=== PATIENT | female | born 1985 | race Caucasian/White ===

== ENCOUNTER → 2021-10-20 13:55 | Outpatient (BNVA) | payer OTHER, SELFPAY | PROVIDERS: PCP Family Medicine Adult Medicine; Visit Provider Obstetrics & Gynecology | DX: N97.9 Female infertility, unspecified (principal) | CPT/HCPCS: 83036; 83525; 84443 ==

== ENCOUNTER → 2021-10-26 13:29 | Outpatient (BNVA) | payer OTHER, SELFPAY | PROVIDERS: PCP Family Medicine Adult Medicine; Visit Provider Obstetrics & Gynecology | DX: D21.9 Benign neoplasm of connective and other soft tissue, unspecified (principal); N85.2 Hypertrophy of uterus; N85.8 Other specified noninflammatory disorders of uterus; N83.8 Other noninflammatory disorders of ovary, fallopian tube and broad ligament | CPT/HCPCS: 76830 ==

== ENCOUNTER 2021-11-23 11:29 | Day surgery (SDC) | payer OTHER, SELFPAY ==
[2021-11-22 15:21] VITALS: BMI 31.3
[2021-11-23] VITALS (9 sets, daily range): BP systolic 83–118; BP diastolic 59–81; PULSE 78–106; RESP 12–18; TEMP 36.4–36.8; O2SAT 90–98
[2021-11-23 11:54] LABS: OR HCG Qualitative Urine Negative (Negative)
[2021-11-23] MEDS: sodium chloride 0.9% 1,000 ML 30 ML IV (12:12)
[2021-11-23] MEDS: ketorolac 30 mg/mL INJ IVP (12:16)
[2021-11-23 12:21] LABS: Basophils # 0.1 10^3/uL (0.0-0.1); Basophils % 0.7 %; Eosinophils # 0.1 10^3/uL (0.0-0.8); Eosinophils % 1.1 %; Hematocrit 38.7 % (37.0-47.0); Lymphocytes # 3.1 10^3/uL (0.8-4.8); Lymphocytes % 36.9 %; Mean Corpuscular HGB Conc 33.6 g/dL (30.0-36.0); Mean Corpuscular Volume 92.4 fl (81-99); Mean Platelet Volume 9.8 fL (7.4-10.4); Monocytes # 0.6 10^3/uL (0.2-0.9); Monocytes % 7.4 %; Neutrophils # 4.54 10^3/uL (1.8-7.7); Neutrophils % 53.5 %; Nucleated Red Blood Cells % 0 %; Platelet Count 326 10^3/cmm (130-400); Red Blood Count 4.19 10^6/uL (4.1-5.3); Red Cell Distribution Width 13.8 % (12.1-15.1); White Blood Count 8.5 10^3/uL (4.0-10.0)
--- NOTE | 2021-11-23 13:33 | W.PM.OPSUD ---
Surgery/Procedure H&P Update DATE OF PROCEDURE: November 23, 2021 DATE H&P PERFORMED: 11/17/21 H&P UPDATE INFORMATION: I have reviewed H&P completed within last 30 days, I have examined patient prior to procedure and No changes to prior documentation PREOP DIAGNOSIS: uterine fibroids, thickened endometrium PLANNED PROCEDURE: Operation Date: 11/23/21 12:50 Proposed Procedures p Hysteroscopy myosure 14557, 09897, 18375,D25.9,R93.89(Not Applicable) - Lisa Hoyos MD s Dilation And Curettage (D&C)(Not Applicable) - Lisa Hoyos MD Related Problem List Diagnoses (1) Thickened endometrium: (2) Uterine leiomyoma:
--- NOTE | 2021-11-23 14:01 | ANES.PREANE2 ---
Pre-Anesthetic Assessment Height/Weight: Height 1.7 m Weight 90.718 kg Temp Pulse Resp BP Pulse Ox 98.3 F 78 15 113/71 96 11/23/21 11:57 11/23/21 11:57 11/23/21 11:57 11/23/21 11:57 11/23/21 11:57 Preop Diagnosis: uterine fibroids, thickened endometrium Operation Date: 11/23/21 12:50 Proposed Procedures p Hysteroscopy myosure 34665, 57371, 27959,D25.9,R93.89(Not Applicable) - Lisa Hoyos MD s Dilation And Curettage (D&C)(Not Applicable) - Lisa Hoyos MD Familial anesthetic complications: None Was Beta Chencho taken within 24 hours: N/A Was Clonidine taken within 24 hours: N/A Last intake: Intake Last Liquid Date 11/22/21 Last Liquid Time 00:00 Last Solid Date 11/22/21 Last Solid Time 23:30 Social No alcohol and No tobacco Exam alert, oriented x 3, clear to auscultation bilaterally and regular rate & rhythm Airway Submandibular: within normal limits Cervical ROM: within normal limits Mallampati: Class II Dentition: full History/ROS No significant history except as noted Anesthetic Plan ASA status: 1 Anesthesia: General Medications/Allergies Home Medications Medication Instructions Recorded Confirmed Last Taken Type acetaminophen 500 mg tablet 500 mg PO Q6H PRN 10/05/21 11/22/21 Unknown History (Tylenol Extra Strength) cholecalciferol (vitamin D3) 1 tab PO DAILY 10/05/21 11/23/21 11/22/21 History multivitamin 1 tab PO DAILY 10/05/21 11/23/21 11/22/21 History Allergies Allergy/AdvReac Type Severity Reaction Status Date / Time No Known Allergies Allergy Verified 11/22/21 15:20 Current Medications Generic Name Dose Route Start Last Admin Trade Name Freq PRN Reason Stop Dose Admin Sodium Chloride 1,000 mls @ 30 mls/hr 11/23/21 11:45 11/23/21 12:12 Sodium Chloride 0.9% IV 11/24/21 11:44 30 mls/hr .Q24H MICHAEL Administration PFSH Anesthesia Medical History Acute anxiety Depression Encounter for wellness examination No pertinent past medical history neghx, htn, dm, thyroid, dvt/pe PCP: Dr. Avelar Uterine fibroid Surgical History S/P LASIK surgery of both eyes Family History Sister Thyroid disease hypothyroidsm Mother CAD (coronary artery disease) Hypertension CHF (congestive heart failure) Mitral valve disorder Cardiomyopathy Hyperlipidemia Heart disease Grandmother Diabetes maternal Hyperlipidemia maternal Colon cancer paternal Grandfather Hyperlipidemia maternal Denies family history of Cervical cancer Ovarian cancer Prostate cancer Breast cancer Bleeding disorder Uterine cancer Stroke Data Anesthesia : 11/23/21 12:10 Short CBC 11/23/21 Range/Units 12:10 WBC 8.5 (4.0-10.0) 10^3/uL Hgb 13.0 (11.5-15.3) g/dL Hct 38.7 (37.0-47.0) % MCV 92.4 (81-99) fl Plt Count 326 (130-400) 10^3/cmm Neut % (Auto) 53.5 % Neut # (Auto) 4.54 (1.8-7.7) 10^3/uL Cardiac Studies: No Data to Display
--- NOTE | 2021-11-23 15:00 | P.OP_ITS ---
Operative Report Date of procedure: November 23, 2021 Pre-op diagnosis: Preop Diagnosis uterine fibroids, thickened endometrium Post-op diagnosis: same Post-op findings: 10 week sized uterus Procedure done: hysteroscopy, dilation and curettage with myosure Specimens removed/disposition: endometrial curettings to pathology Surgeon: Lisa Hoyos Anesthesia: MAC Estimated blood loss (mL): 100 IV fluids (mL): 700 Urine output (mL): 300 Complications: none Condition: stable Disposition: PACU Procedure: The patient was taken to the operating room where monitored anesthesia was administered and to be adequate. She was prepped and draped in the normal sterile fashion in the dorsal lithotomy position in [facility]. A weighted speculum was placed into the vagina and the anterior lip of the cervix grasped with a single-tooth tenaculum. The uterus was sounded to 10 cm. The cervix was dilated to 18 Yi. The hysteroscope was advanced into the endometrial cavity. There was multiple fibroids visualized. The MyoSure device was activated and the tissue was removed. Pictures were taken pre and post procedure. All instruments were removed. The patient tolerated the procedure well. Sponge lap and needle counts were correct x3. She was taken to the recovery room in stable condition.
--- NOTE | 2021-11-23 15:03 | PM.DCS ---
Discharge Providers Date of Discharge: November 23, 2021 Attending Provider at Discharge: Lisa Hoyos MD Primary Care Provider: Nicola Garcia MD Diagnoses at Discharge Discharge Diagnosis (1) Thickened endometrium: Status: Acute (2) Uterine leiomyoma: Status: Acute Hospital Course Hospital Course The patient was admitted for surgery. She did well postoperatively and was ready for discharge Discharge Data Studies Completed and Pending Pending at discharge Category Date Time Status ES surgery / GI images Routine Exams 11/23/21 12:47 Taken Pathology: Surgical [PTH] Routine Pth 11/23/21 15:02 Ordered Laboratory Results WBC 8.5 10^3/uL (4.0-10.0) 11/23/21 12:10 RBC 4.19 10^6/uL (4.1-5.3) 11/23/21 12:10 Hgb 13.0 g/dL (11.5-15.3) 11/23/21 12:10 Hct 38.7 % (37.0-47.0) 11/23/21 12:10 MCV 92.4 fl (81-99) 11/23/21 12:10 MCH 31.0 pg (28.0-34.0) 11/23/21 12:10 MCHC 33.6 g/dL (30.0-36.0) 11/23/21 12:10 RDW 13.8 % (12.1-15.1) 11/23/21 12:10 Plt Count 326 10^3/cmm (130-400) 11/23/21 12:10 MPV 9.8 fL (7.4-10.4) 11/23/21 12:10 Neut % (Auto) 53.5 % 11/23/21 12:10 Lymph % (Auto) 36.9 % 11/23/21 12:10 [place] % (Auto) 7.4 % 11/23/21 12:10 Eos % (Auto) 1.1 % 11/23/21 12:10 Baso % (Auto) 0.7 % 11/23/21 12:10 Neut # (Auto) 4.54 10^3/uL (1.8-7.7) 11/23/21 12:10 Lymph # (Auto) 3.1 10^3/uL (0.8-4.8) 11/23/21 12:10 [place] # (Auto) 0.6 10^3/uL (0.2-0.9) 11/23/21 12:10 Eos # (Auto) 0.1 10^3/uL (0.0-0.8) 11/23/21 12:10 Baso # (Auto) 0.1 10^3/uL (0.0-0.1) 11/23/21 12:10 Nucleated RBC % (auto) 0 % 11/23/21 12:10 Nucleated RBCs # 0.0 /100WBC 11/23/21 12:10 Urine HCG, Qual Negative (Negative) 11/23/21 11:52 Vitals Last Vital Signs Temp 98.3 F 11/23/21 11:57 Pulse 78 11/23/21 11:57 Resp 15 11/23/21 11:57 BP 113/71 11/23/21 11:57 Pulse Ox 96 11/23/21 11:57 Discharge Plan Discharge Patient Disposition: Home Condition: Stable Prescriptions: Continued cholecalciferol (vitamin D3) 1 tab PO DAILY 0RF multivitamin Tablet 1 tab PO DAILY 0RF acetaminophen [Tylenol Extra Strength] 500 mg tablet 500 mg PO Q6H PRN (Reason: Pain) 0RF Discharge Orders: Discharge Order (Routine); Ordered 11/23/21 Ordered By: Lisa Hoyos Discharge Attestations Time Spent in Discharge Care*: less than 30 min Quality Metrics Clinical Quality Measures [ No reported AMI, CVA or VTE this stay] Coding Level of Care Code Acute Chg FW DC note Diagnoses Thickened endometrium R93.89 Uterine leiomyoma D25.9
--- NOTE | 2021-11-23 15:21 | ANE.PACU2 ---
Inpatient post-anesthesia follow up: Airway intact: Yes Vital signs: Temperature 97.5 F Pulse Rate 98 Respiratory Rate 18 Blood Pressure 116/72 Pulse Oximetry 96 Oxygen Delivery Me thod Room Air Oxygen Flow Rate 2 Fraction of Inspir ed Oxygen Hydration adequate: Yes Nausea and vomiting: No Pain level: 2 Mental status: Baseline
== END 2021-11-23 16:00 | disposition home or self-care (01) ==
PROVIDERS: PCP Family Medicine Adult Medicine; Visit Provider Obstetrics & Gynecology
PROC: 0UDB8ZZ Extraction of Endometrium, Via Natural or Artificial Opening Endoscopic (ICD-10-PCS; CPT 58558; principal; 2021-11-23 12:40)
PROC: (CPT 58120; 2021-11-23 12:40)
DX: D25.9 Leiomyoma of uterus, unspecified (principal); R93.89 Abnormal findings on diagnostic imaging of other specified body structures
CPT/HCPCS: 58558; 36415; 81025; 84703; 85025; 88305; J1100; J1885; J2250; J2405; J2704; J3010; J7030

== ENCOUNTER 2022-03-30 07:21 | Outpatient (CLI) | payer OTHER, SELFPAY ==
--- NOTE | 2022-03-30 07:57 | FL_ITS ---
WS: [id number] HYSTEROSALPINGOGRAM The cervical opening was cannulated by the pearl hand. Then under fluoroscopic guidance, water-solu ble contrast was injected in a retrograde fashion. CLINICAL INFORMATION: INFERTILITY COMPARISON: Ultrasound October 26, 2021 FINDINGS: Normal rapid filling of the uterus. No evidence of contour abnormality, filling defect, or septum. La te filling of the LEFT fallopian tube with spillage into the peritoneum. No filling of the RIGHT fall opian tube. Suspected fibroids described on the prior ultrasound. No fibroid calcifications visualized. FLUOROSCOPY TIME: 0min 55.0sec minutes. # of spot films: 7. FL/FL hysterosalpingography [id number] IMPRESSION: 1. Normal rapid filling of the uterus with Normal uterine contour. No septum o r filling defects. 2. Late filling of the LEFT fallopian tube with spillage into the peritoneum. 3. No filling or partial filling of the RIGHT fallopian tube
[2022-03-30] MEDS: iohexol 300 mg/mL 50 mL Btl VAGINAL (09:03)
--- NOTE | 2022-03-30 15:49 | PM.OP ---
Operative Report Date of procedure: March 30, 2022 Pre-op diagnosis: Preop Diagnosis uterine fibroids, thickened endometrium Post-op diagnosis: same Post-op findings: patent left fallopian tube. No spill from right tube Procedure done: hysterosalpingogram Surgeon: Lisa Hoyos Estimated blood loss (mL): 0 Complications: none Findings: normal uterine contour patent left fallopian tube non-patent right fallopian tube Condition: stable Disposition: other (home) Procedure: The patient was placed in the dorsal lithotomy position. The speculum was placed into the vagina and the cervix visualized. It was cleansed with betadine. A single tooth tenaculum was placed onto the anterior lip of the cervix. The uterus was sounded to 8 cm. The canula was placed into the cervix. 12 ml of contrast was injected into the uterus. Fluoroscopy was used to take images. All of the instruments were removed. A final picture was taken. The patient tolerated the procedure well. Counts were correct. She was dismissed home in stable condition.
--- NOTE | 2022-03-30 15:52 | PM.DCS ---
Discharge Providers Date of Discharge: March 30, 2022 Attending Provider at Discharge: Lisa Hoyos MD Primary Care Provider: Nicola Garcia MD Reason for Visit Reason for Visit: N97.9 - Female infertility, unspe 25641 Hospital Course Hospital Course The patient had an HSG. It showed a patent left tube and non-patent right tube. The uterine contour was normal. She was discharged home in stable condition. Discharge Data Studies Completed and Pending Completed Studies During Hospitalization Category Date Time Status [place] hysterosalpingography [id number] Routine Exams 03/30/22 07:57 Completed Radiology Impressions Hysterosalpingogram 03/30/22 07:57 IMPRESSION: 1. Normal rapid filling of the uterus with Normal uterine contour. No septum or filling defects. 2. Late filling of the LEFT fallopian tube with spillage into the peritoneum. 3. No filling or partial filling of the RIGHT fallopian tube Discharge Plan Discharge Patient Disposition: Home Prescriptions: No Action cholecalciferol (vitamin D3) 1 tab PO DAILY multivitamin Tablet 1 tab PO DAILY acetaminophen [Tylenol Extra Strength] 500 mg tablet 500 mg PO Q6H PRN (Reason: Pain) loratadine [Claritin] 10 mg tablet 10 mg PO DAILY fluticasone propionate [Flonase Allergy Relief] 50 mcg/actuation spray,suspension 1 spray intranasal DAILY Rx Instructions: administer into each nostril clomiphene citrate 50 mg tablet 50 mg PO DAILY 5 Days Qty: 5 0RF Rx Instructions: start cycle day #3 for 5 days. Discharge Attestations Time Spent in Discharge Care*: less than 30 min Quality Metrics Clinical Quality Measures [ No reported AMI, CVA or VTE this stay] Coding Level of Care Code Acute Chg FW DC note
== END 2022-03-30 07:22 | disposition home or self-care (01) ==
PROVIDERS: PCP Family Medicine Adult Medicine; Visit Provider Obstetrics & Gynecology
DX: N97.9 Female infertility, unspecified (principal)
CPT/HCPCS: 74740

== ENCOUNTER → 2022-05-12 08:40 | Outpatient (BNVA) | payer OTHER, SELFPAY | PROVIDERS: PCP Family Medicine Adult Medicine; Visit Provider Nurse Practitioner Women's Health | DX: O20.0 Threatened abortion (principal); Z32.00 Encounter for pregnancy test, result unknown; N92.6 Irregular menstruation, unspecified; Z3A.00 Weeks of gestation of pregnancy not specified | CPT/HCPCS: 81025; 84315; 84702; 85025; 86850; 86900 ==

== ENCOUNTER → 2022-06-23 15:00 | Outpatient (BNVA) | payer OTHER, SELFPAY | PROVIDERS: PCP Family Medicine Adult Medicine; Visit Provider Obstetrics & Gynecology | DX: O09.891 Supervision of other high risk pregnancies, first trimester (principal); Z3A.00 Weeks of gestation of pregnancy not specified | CPT/HCPCS: 84443; 86592; 86762; 86803; 87340; 87491; 87591; 87661; 87806 ==

== ENCOUNTER → 2022-07-21 09:00 | Outpatient (BNVA) | payer OTHER, SELFPAY | PROVIDERS: PCP Family Medicine Adult Medicine; Visit Provider Nurse Practitioner Women's Health | DX: O09.90 Supervision of high risk pregnancy, unspecified, unspecified trimester (principal); Z3A.00 Weeks of gestation of pregnancy not specified | CPT/HCPCS: 80307; 84315; 87086 ==

== ENCOUNTER 2022-08-02 13:33 | Emergency (ER) | payer OTHER, SELFPAY ==
[2022-08-02 14:02] VITALS: BP 120/78; PULSE 102; RESP 17; TEMP 36.5; O2SAT 97; BMI 32.8
[2022-08-02 14:17] VITALS: BP 117/85; PULSE 110; RESP 16; O2SAT 98
[2022-08-02 14:34] LABS: Add Urine Microscopic? NO; Charge for UA Resulting for Rev
[2022-08-02 14:42] LABS: Bilirubin Urine Neg (Negative); Blood Urine Neg (Negative); Glucose Urine UA Norm (Normal); Ketones Urine Negative (Negative); Leukocyte Esterase Urine Negative (Negative); Nitrate Urine Negative (Negative); Protein Urine Neg (Negative); Urine Appearance Clear (CLEAR); Urine Color Light yellow (Yellow); Urobilinogen Urine Norm (Negative); pH Urine 7 (5-7)
[2022-08-02 14:43] LABS: Basophils # 0.1 10^3/uL (0.0-0.1); Basophils % 0.3 %; Eosinophils % 0.3 %; Hematocrit 37.1 % (37.0-47.0); Hemoglobin 12.2 g/dL (11.5-15.3); Lymphocytes # 2.7 10^3/uL (0.8-4.8); Lymphocytes % 17.9 %; Mean Corpuscular HGB Conc 32.9 g/dL (30.0-36.0); Mean Corpuscular Volume 91.4 fl (81-99); Mean Platelet Volume 9.9 fL (7.4-10.4); Monocytes # 0.9 10^3/uL (0.2-0.9); Monocytes % 6.2 %; Neutrophils # 11.37 10^3/uL (1.8-7.7); Nucleated Red Blood Cells % 0 %; Platelet Count 296 10^3/cmm (130-400); Red Blood Count 4.06 10^6/uL (4.1-5.3); Red Cell Distribution Width 13.2 % (12.1-15.1); White Blood Count 15.2 10^3/uL (4.0-10.0)
--- NOTE | 2022-08-02 14:46 | ED_ITS ---
HPI - General: Chief complaint: OB/Uterine Contractions Stated complaint: 18wk preg/LLQ pain Time Seen by Provider: 08/02/22 14:13 Source: patient Mode of arrival: ambulatory History of Present Illness: 36-year-old female who is at 18 weeks gestation presents with complaints of abdominal pain and cramping. She denies any dysuria urgency or frequency. Denies any constipation. No vaginal bleeding or discharge. MD Complaint: abdominal pain Onset (ago): hour(s) Pain Consistency: intermittent Location: pelvis Severity: mild Quality: Cramping Relieving factors: none Exacerbating factors: none Vaginal discharge: none Vaginal bleeding: none Date of Last Menstrual Period: 03/26/22 OB History - Previous Pregnancies: no complications care: followed by OB and previous ultrasound confirms IUP Associated symptoms: Deny abdominal pain, dyspareunia, dysuria, headache(s), malaise, nausea, rash, seizures, short of breath, syncope, vaginal bleeding, vaginal discharge, visual changes, vomiting or weakness Related Data: : 1 Review of Systems Const: Denies: fever(s), chills, fatigue or malaise ENMT: Denies: throat pain, ear or mastoid pain, nasal discharge or nasal congestion Card: Denies: chest pain or syncope Resp: Denies: dyspnea, productive cough or non-productive cough GI: Denies: abdominal pain, nausea or vomiting : Denies: dysuria, vaginal discharge or dyspareunia Skin/Breast: Denies: rash or pruritus Neuro: Denies: headache(s) PFSH ED PFSH: Medical History Acute anxiety resolved Depression resolved No pertinent past medical history neghx, htn, dm, thyroid, dvt/pe PCP: Dr. Avelar Uterine fibroid Surgical History S/P LASIK surgery of both eyes Family History Sister Thyroid disease hypothyroidsm Mother CAD (coronary artery disease) Hypertension CHF (congestive heart failure) Mitral valve disorder Cardiomyopathy Hyperlipidemia Heart disease Grandmother Diabetes maternal Hyperlipidemia maternal Colon cancer paternal Grandfather Hyperlipidemia maternal Denies family history of Cervical cancer Ovarian cancer Prostate cancer Breast cancer Bleeding disorder Uterine cancer Stroke Female Reproductive History: Date of last menstrual period: 03/26/22 : 1 Physical Exam Const: COMMON NORMALS: no acute distress GENERAL APPEARANCE: cooperative and comfortable ORIENTATION/CONSCIOUSNESS: Yes awake, Yes oriented to person, Yes oriented to place and Yes oriented to time HENMT: COMMON NORMALS: normocephalic, atraumatic and hearing grossly normal bi laterally HEAD & SCALP: normocephalic and atraumatic Resp: COMMON NORMALS: normal respiratory effort, No retractions, No use of accessory muscles and clear to auscultation bilaterally AUSCULTATION: clear to auscultation bilaterally Cardio: COMMON NORMALS: regular rate, regular rhythm and No murmurs present (Cardio) RATE: regular rate RHYTHM: regular rhythm GI: COMMON NORMALS: Soft to palpation and No hepatosplenomegaly present AUSCULTATION: Yes normoactive bowel sounds PALPATION: Yes Soft to palpation, No Tenderness to palpation present (GI), No Guarding due to palpation present (GI) and Yes No hepatosplenomegaly present : SPECULUM EXAM - VAGINA: No vaginal bleeding OB/EXTERNAL & SPECULUM: No vaginal bleeding OTHER: Uterus palpable 2 to 3 cm below the umbilicus. On palpation the uterus is shifted slightly to the left and is prominent in the left lower quadrant. This is area the patient is referring to when she palpates a lump. No evidence of inguinal hernia. Extremity: COMMON NORMALS: normal to inspection, capillary refill normal, no clubbing, cyanosis or edema, no calf tenderness and no pedal edema Neuro: SENSORIUM/ORIENTATION: Yes oriented to person, Yes oriented to place and Yes oriented to time Skin: COMMON NORMALS: no rashes or lesions noted GENERAL SKIN EXAM: no rashes or lesions noted Course Vital Signs: Vital signs: Vital Signs Temperature 97.7 F 08/02/22 14:02 Pulse Rate 110 H 08/02/22 14:17 Respiratory Rate 16 08/02/22 14:17 Blood Pressure 117/85 08/02/22 14:17 Pulse Oximetry 98 08/02/22 14:17 Oxygen Delivery Me thod 08/02/22 14:17 MDM - OB/Uterine Contractions Medical Decision Making heart tones normal. Patient is feeling better after receiving IV fluids. Discharge home Labs and imaging reviewed with the patient no changes at this time follow-up with your OB as previously planned return if he has further problems. Medical Records I reviewed the patient's medical records. Lab Data I reviewed the patient's lab results. 08/02/22 14:30 08/02/22 14:30 Laboratory Results WBC 15.2 10^3/uL (4.0-10.0) H 08/02/22 14:30 RBC 4.06 10^6/uL (4.1-5.3) L 08/02/22 14:30 Hgb 12.2 g/dL (11.5-15.3) 08/02/22 14:30 Hct 37.1 % (37.0-47.0) 08/02/22 14: MCV 91.4 fl (81-99) 08/02/22 14: MCH 30.0 pg (28.0-34.0) 08/02/22 14: MCHC 32.9 g/dL (30.0-36.0) 08/02/22 14:30 RDW 13.2 % (12.1-15.1) 08/02/22 14:30 Plt Count 296 10^3/cmm (130-400) 08/02/22 14: MPV 9.9 fL (7.4-10.4) 08/02/22 14:30 Neut % (Auto) 75.0 % 08/02/22 14:30 Lymph % (Auto) 17.9 % 08/02/22 14:30 [place] % (Auto) 6.2 % 08/02/22 14:30 Eos % (Auto) 0.3 % 08/02/22 14:30 Baso % (Auto) 0.3 % 08/02/22 14:30 Neut # (Auto) 11.37 10^3/uL (1.8-7.7) H 08/02/22 14:30 Lymph # (Auto) 2.7 10^3/uL (0.8-4.8) 08/02/22 14:30 [place] # (Auto) 0.9 10^3/uL (0.2-0.9) 08/02/22 14:30 Eos # (Auto) 0.0 10^3/uL (0.0-0.8) 08/02/22 14:30 Baso # (Auto) 0.1 10^3/uL (0.0-0.1) 08/02/22 14:30 Nucleated RBC % (auto) 0 % 08/02/22 14:30 Nucleated RBCs # 0.0 /100WBC 08/02/22 14:30 Sodium 134 mmol/L (136-145) L 08/02/22 14:30 Potassium 3.8 mmol/L (3.5-5.1) 08/02/22 14:30 Chloride 99 mmol/L (98-107) 08/02/22 14:30 Carbon Dioxide 23 mmol/L (22-29) 08/02/22 14:30 Anion Gap 15.8 (5-19) 08/02/22 14:30 BUN 6 mg/dL (6-20) 08/02/22 14:30 Creatinine 0.4 mg/dL (0.5-0.9) L 08/02/22 14:30 GFR Calculation 179.6 mL/min (90-130) H 08/02/22 14:30 Glucose 105 mg/dL (65-115) 08/02/22 14:30 Calculated Osmolality 276 mOsm/kg (285-295) L 08/02/22 14:30 Calcium 9.0 mg/dL (8.5-10.5) 08/02/22 14:30 Total Bilirubin 0.3 mg/dL (0.15-1.2) 08/02/22 14:30 AST 9 U/L (0-32) 08/02/22 14:30 ALT 10 U/L (0-33) 08/02/22 14:30 Alkaline Phosphatase 66 U/L (35-105) 08/02/22 14:30 Total Protein 7.0 g/dL (6.6-8.7) 08/02/22 14:30 Albumin 3.7 g/dL (3.5-5.2) 08/02/22 14:30 Globulin 3.3 g/dL (1.3-4.6) 08/02/22 14:30 Urine Color Light yellow (Yellow) 08/02/22 14:20 Urine Appearance Clear (CLEAR) 08/02/22 14:20 Urine pH 7 (5-7) 08/02/22 14:20 Ur Specific [place] 1.010 (1.005-1.030) 08/02/22 14:20 Urine Protein Neg (Negative) 08/02/22 14:20 Urine Glucose (UA) Norm (Normal) 08/02/22 14:20 Urine Ketones Negative (Negative) 08/02/22 14:20 Urine Blood Neg (Negative) 08/02/22 14:20 Urine Nitrate Negative (Negative) 08/02/22 14:20 Urine Bilirubin Neg (Negative) 08/02/22 14:20 Urine Urobilinogen Norm mg/dL (Negative) 08/02/22 14:20 Ur Leukocyte Esterase Negative (Negative) 08/02/22 14:20 Discharge Plan Discharge Patient Disposition: Home Clinical Impression: Pelvic cramping Condition: Stable Prescriptions: No Action cholecalciferol (vitamin D3) 1 tab PO DAILY multivitamin Tablet 1 tab PO DAILY acetaminophen [Tylenol Extra Strength] 500 mg tablet 500 mg PO Q6H PRN (Reason: Pain) prenat.vits,yan,[id number]-hgny-bjypg Tablet 1 tab PO DAILY loratadine [Claritin] 10 mg tablet 10 mg PO DAILY Discharge Orders: Discharge ED (Routine); Ordered 08/02/22 Ordered By: Rudy Gallardo Referrals: Lisa Hoyos MD [Primary Care Provider] - Discharge Diet: Usual diet Discharge Activity: Resume usual activity Patient Instructions: Opioid Safety, Pain Management Activity Restrictions/Additional Instructions: You are seen today for pelvic cramping. heart tones were normal your lab work was normal and urine was normal follow-up with your primary OB as previously scheduled. Coding Level of Care Code ED Chart Reader for [facility]
[2022-08-02] MEDS: sodium chloride 0.9% 1,000 ML 999 ML IV (14:51)
[2022-08-02 15:03] LABS: Alanine Aminotransferase 10 U/L (0-33); Albumin Level 3.7 g/dL (3.5-5.2); Alkaline Phosphatase 66 U/L (35-105); Anion Gap 15.8 (5-19); Aspartate Amino Transferase 9 U/L (0-32); Blood Urea Nitrogen 6 mg/dL (6-20); Carbon Dioxide 23 mmol/L (22-29); Chloride 99 mmol/L (98-107); Globulin 3.3 g/dL (1.3-4.6); Glomerular Filtration Rate 179.6 mL/min (90-130); Glucose 105 mg/dL (65-115); Osmolality Calculated 276 mOsm/kg (285-295); Potassium 3.8 mmol/L (3.5-5.1); Sodium 134 mmol/L (136-145); Total Bilirubin 0.3 mg/dL (0.15-1.2)
== END 2022-08-02 17:08 | disposition home or self-care (01) ==
PROVIDERS: Emergency Provider Family Medicine; PCP Obstetrics & Gynecology
DX: O26.892 Other specified pregnancy related conditions, second trimester (principal); Z3A.18 18 weeks gestation of pregnancy; R10.9 Unspecified abdominal pain
CPT/HCPCS: 80053; 81003; 85025; 96360; 96361; 99284; J7030

== ENCOUNTER → 2022-09-12 08:51 | Outpatient (BNVA) | payer OTHER, SELFPAY | PROVIDERS: PCP Obstetrics & Gynecology; Visit Provider Obstetrics & Gynecology | DX: O09.90 Supervision of high risk pregnancy, unspecified, unspecified trimester (principal); Z3A.00 Weeks of gestation of pregnancy not specified | CPT/HCPCS: 84315; 84443 ==

== ENCOUNTER → 2022-10-10 10:26 | Outpatient (BNVA) | payer OTHER, SELFPAY | PROVIDERS: PCP Obstetrics & Gynecology; Visit Provider Obstetrics & Gynecology | DX: O09.891 Supervision of other high risk pregnancies, first trimester (principal); Z3A.00 Weeks of gestation of pregnancy not specified | CPT/HCPCS: 82950; 84315; 85025 ==

== ENCOUNTER → 2022-10-28 08:24 | Outpatient (BNVA) | payer OTHER, SELFPAY | PROVIDERS: PCP Obstetrics & Gynecology; Visit Provider Obstetrics & Gynecology | DX: O09.90 Supervision of high risk pregnancy, unspecified, unspecified trimester (principal) | CPT/HCPCS: 82951; 82952 ==

== ENCOUNTER → 2022-12-05 10:38 | Outpatient (BNVA) | payer OTHER, SELFPAY | PROVIDERS: PCP Obstetrics & Gynecology; Visit Provider Obstetrics & Gynecology | DX: O09.891 Supervision of other high risk pregnancies, first trimester (principal) | CPT/HCPCS: 84315; 87081; 87086 ==

== ENCOUNTER → 2022-12-12 13:56 | Outpatient (BNVA) | payer OTHER, SELFPAY | PROVIDERS: PCP Obstetrics & Gynecology; Visit Provider Obstetrics & Gynecology | DX: O09.90 Supervision of high risk pregnancy, unspecified, unspecified trimester (principal) | CPT/HCPCS: 81000; 87086 ==

== ENCOUNTER 2022-12-14 10:00 | Outpatient (CLI) | payer OTHER, SELFPAY ==
--- NOTE | 2022-12-14 10:18 | US_ITS ---
WS: [id number] ULTRASOUND OB LIMITED TECHNIQUE: Limited ultrasound examination of the fetus. CLINICAL INFORMATION: version COMPARISON: None. FINDINGS: Attempted ECV Single interuterine gestation. presentation is breech Placental location is anterior. Placenta grade: 2 heart rate 136 BPM. Normal ILENE 11.4 cm US/US OB limited [id number] IMPRESSION: 1. presentation is breech. 2. Placenta is anterior. 3. Normal ILENE.
[2022-12-14] MEDS: terbutaline 1 mg/mL INJ 0.25 MG SUBCUT (10:39)
[2022-12-14 10:43] VITALS: BMI 34.0
[2022-12-14 10:53] LABS: Eosinophils # 0.1 10^3/uL (0.0-0.8); Eosinophils % 0.6 %; Hematocrit 34.5 % (37.0-47.0); Hemoglobin 11.3 g/dL (11.5-15.3); Lymphocytes # 3.1 10^3/uL (0.8-4.8); Lymphocytes % 29.4 %; Mean Corpuscular HGB Conc 32.8 g/dL (30.0-36.0); Mean Corpuscular Hemoglobin 28.9 pg (28.0-34.0); Mean Corpuscular Volume 88.2 fl (81-99); Mean Platelet Volume 11.4 fL (7.4-10.4); Monocytes # 0.7 10^3/uL (0.2-0.9); Monocytes % 6.5 %; Neutrophils # 6.67 10^3/uL (1.8-7.7); Neutrophils % 62.7 %; Nucleated Red Blood Cells % 0 %; Platelet Count 257 10^3/cmm (130-400); Red Blood Count 3.91 10^6/uL (4.1-5.3); Red Cell Distribution Width 14.4 % (12.1-15.1); White Blood Count 10.6 10^3/uL (4.0-10.0)
[2022-12-14 11:05] VITALS: BP 122/89; PULSE 109
--- NOTE | 2022-12-14 11:12 | PM.OP ---
Operative Report Date of procedure: December 14, 2022 Pre-op diagnosis: breech presentation Post-op diagnosis: same Post-op findings: baby in same position as start Procedure done: attempted external cephalic version Surgeon: Lisa Hoyos Complications: none Findings: footling breech presentation. head upper left quadrant Procedure: After informed consent was obtained the patient was placed in the dorsal supine position. The mixer crane operator confirmed position of the baby. heart rate was 130. The head was in the left upper quadrant and the breech was midline. The patient was given 1 dose of terbutaline. monitoring showed a reactive tracing. Lubrication was placed onto the abdomen and the vertex moved to the right and an attempt at a backwards roll. The head moved to the midline. heart rate was confirmed at 137. Again I attempted with the head to move it to the right for a backwards roll. It went back to the left upper quadrant. heart rate was confirmed at 157. I then attempted a forward roll. I got the baby to transverse, back up. This was taking a toll on the mother. 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 I stopped the procedure at this time. heart rate was 155. The patient was placed back on the monitor. A reactive heart tracing was obtained. The patient was dismissed in stable condition. We discussed other methods such as acupuncture to try to see if she could get the baby to move to a cephalic presentation. She is trying to decide if she wants to schedule a at 39 weeks or weight and come in in labor. We will discuss this more at her next visit.
[2022-12-14 11:20] VITALS: BP 115/77; PULSE 109
[2022-12-14 11:36] VITALS: BP 101/68; PULSE 115
--- NOTE | 2022-12-14 13:13 | PM.DCS ---
Discharge Providers Date of Admission: 12/14/22 Date of Discharge: December 14, 2022 Attending Provider at Admission: Dr. Hoyos Attending Provider at Discharge: Lisa Hoyos MD Primary Care Provider: Lisa Hoyos MD Reason for Visit Reason for Visit: version Hospital Course Hospital Course The patient was admitted for external cephalic version. It was unsuccessful. After the procedure, she was monitored for 30 minutes with a reactive heart tracing. She was dismissed home in stable condition. Discharge Data Studies Completed and Pending Completed Studies During Hospitalization Category Date Time Status [place] [id number] Routine Ultrasound 12/14/22 10:18 Completed Radiology Impressions Obstetrics Ultrasound 12/14/22 10:18 IMPRESSION: 1. presentation is breech. 2. Placenta is anterior. 3. Normal ILENE. Laboratory Results WBC 10.6 10^3/uL (4.0-10.0) H 12/14/22 10:26 RBC 3.91 10^6/uL (4.1-5.3) L 12/14/22 10:26 Hgb 11.3 g/dL (11.5-15.3) L 12/14/22 10:26 Hct 34.5 % (37.0-47.0) L 12/14/22 10:26 MCV 88.2 fl (81-99) 12/14/22 10:26 MCH 28.9 pg (28.0-34.0) 12/14/22 10:26 MCHC 32.8 g/dL (30.0-36.0) 12/14/22 10:26 RDW 14.4 % (12.1-15.1) 12/14/22 10:26 Plt Count 257 10^3/cmm (130-400) 12/14/22 10:26 MPV 11.4 fL (7.4-10.4) H 12/14/22 10:26 Neut % (Auto) 62.7 % 12/14/22 10:26 Lymph % (Auto) 29.4 % 12/14/22 10:26 [place] % (Auto) 6.5 % 12/14/22 10:26 Eos % (Auto) 0.6 % 12/14/22 10:26 Baso % (Auto) 0.0 % 12/14/22 10:26 Neut # (Auto) 6.67 10^3/uL (1.8-7.7) 12/14/22 10:26 Lymph # (Auto) 3.1 10^3/uL (0.8-4.8) 12/14/22 10:26 [place] # (Auto) 0.7 10^3/uL (0.2-0.9) 12/14/22 10:26 Eos # (Auto) 0.1 10^3/uL (0.0-0.8) 12/14/22 10:26 Baso # (Auto) 0.0 10^3/uL (0.0-0.1) 12/14/22 10:26 Nucleated RBC % (auto) 0 % 12/14/22 10:26 Nucleated RBCs # 0.0 /100WBC 12/14/22 10:26 Vitals Last Vital Signs Pulse 115 H 12/14/22 11:36 BP 101/68 12/14/22 11:36 Discharge Plan Discharge Patient Disposition: Home Prescriptions: No Action cholecalciferol (vitamin D3) 1 tab PO DAILY acetaminophen [Tylenol Extra Strength] 500 mg tablet 500 mg PO Q6H PRN (Reason: Pain) prenat.vits,yan,[id number] Tablet 1 tab PO DAILY loratadine [Claritin] 10 mg tablet 10 mg PO DAILY Discharge Orders: Discharge Order (Routine); Ordered 12/14/22 Ordered By: Lisa Hoyos Diet: Usual diet Activity: Resume usual activity Patient Instructions: Movement (GEN), External Cephalic Version (GEN), OB Undelivered Discharge Discharge Attestations Time Spent in Discharge Care*: less than 30 min Quality Metrics Clinical Quality Measures [ No reported AMI, CVA or VTE this stay] Coding Level of Care Code Acute Code for Chg Fwd Diagnoses
--- NOTE | 2022-12-14 15:17 | PC.NURSE ---
Physician in room @1043, this RN at bedside continuously, ultrasound in room Scan for head @1043 Version started @1045 scan @1046 version continued @1046 scan @1046 version continued @1047 scan @1047 version continued @1047 scan@1045 FHT-133 version continued @1048 scan@1048 version continued @1048 scan@1049 version continued @1049 scan@1050 FHT-157 version continued @1050 scan@1051 version continued @1051 scan@1051 version continued @1051 scan@1052 version continued @1052 scan@1052 version continued @1052 scan@1052 version continued @1053 scan@1053 FHT-164 version continued @1054 scan@1054 version continued @1055 scan@1055 version continued @1055 version stopped@ 1056 FHT-155
== END 2022-12-14 12:02 | disposition home or self-care (01) ==
LOC: OPOB 10:05 → OBGYN 10:06
PROVIDERS: PCP Obstetrics & Gynecology; Visit Provider Obstetrics & Gynecology
DX: O32.1XX0 Maternal care for breech presentation, not applicable or unspecified (principal); Z3A.00 Weeks of gestation of pregnancy not specified
CPT/HCPCS: 36415; 59025; 76815; 85025; 96372; 99211; J3105

== ENCOUNTER 2022-12-19 11:31 | Outpatient (CLI) | payer OTHER, SELFPAY ==
[2022-12-19 11:31] VITALS: BMI 34.2
[2022-12-19 11:46] VITALS: RESP 16
[2022-12-19 11:52] VITALS: BP 124/84; PULSE 110
[2022-12-19 12:06] VITALS: BP 124/89; PULSE 102
[2022-12-19 12:18] LABS: Add Urine Microscopic? NO; Charge for UA Resulting for Rev
[2022-12-19 12:22] VITALS: BP 117/84; PULSE 94
[2022-12-19 12:22] LABS: Basophils % 0.1 %; Eosinophils # 0.1 10^3/uL (0.0-0.8); Eosinophils % 0.5 %; Hematocrit 34.7 % (37.0-47.0); Hemoglobin 11.4 g/dL (11.5-15.3); Lymphocytes # 3.3 10^3/uL (0.8-4.8); Lymphocytes % 28.9 %; Mean Corpuscular HGB Conc 32.9 g/dL (30.0-36.0); Mean Corpuscular Hemoglobin 29.2 pg (28.0-34.0); Monocytes # 0.8 10^3/uL (0.2-0.9); Monocytes % 6.7 %; Neutrophils # 7.26 10^3/uL (1.8-7.7); Neutrophils % 63.1 %; Nucleated Red Blood Cells % 0 %; Platelet Count 243 10^3/cmm (130-400); Red Cell Distribution Width 14.6 % (12.1-15.1); White Blood Count 11.5 10^3/uL (4.0-10.0)
[2022-12-19 12:23] LABS: Urine Appearance Clear (CLEAR); Urine Color Yellow (Yellow)
[2022-12-19 12:24] LABS: Bilirubin Urine Neg (Negative); Blood Urine Neg (Negative); Glucose Urine UA Norm (Normal); Ketones Urine Negative (Negative); Leukocyte Esterase Urine Negative (Negative); Nitrate Urine Negative (Negative); Protein Urine Neg (Negative); Specific Gravity, Urine 1.005 (1.005-1.030); Urobilinogen Urine Norm (Negative); pH Urine 7 (5-7)
[2022-12-19 12:36] LABS: Alanine Aminotransferase 11 U/L (0-33); Albumin Level 3.1 g/dL (3.5-5.2); Alkaline Phosphatase 99 U/L (35-105); Anion Gap 14.6 (5-19); Aspartate Amino Transferase 10 U/L (0-32); Blood Urea Nitrogen 6 mg/dL (6-20); Calcium 8.9 mg/dL (8.5-10.5); Carbon Dioxide 19 mmol/L (22-29); Chloride 103 mmol/L (98-107); Globulin 2.8 g/dL (1.3-4.6); Glomerular Filtration Rate 178.6 mL/min (90-130); Glucose 98 mg/dL (65-115); Osmolality Calculated 274 mOsm/kg (285-295); Potassium 3.6 mmol/L (3.5-5.1); Sodium 133 mmol/L (136-145); Total Bilirubin 0.2 mg/dL (0.15-1.2); Total Protein 5.9 g/dL (6.6-8.7); Uric Acid 4.3 mg/dL (2.4-5.7)
[2022-12-19 12:37] VITALS: BP 120/83; PULSE 94
[2022-12-19 12:41] LABS: Urine Creatinine 16 mg/dL (28-217); Urine Protein Random 4 mg/dL
[2022-12-19 12:44] LABS: UPRO/UCREAT Ratio 0.25 mg/mg CR
[2022-12-19 12:51] VITALS: BP 126/84; PULSE 90
== END 2022-12-19 13:00 | disposition home or self-care (01) ==
LOC: OPOB 11:35 → OBGYN 11:37
PROVIDERS: PCP Obstetrics & Gynecology; Visit Provider Obstetrics & Gynecology
DX: O16.9 Unspecified maternal hypertension, unspecified trimester (principal); Z3A.00 Weeks of gestation of pregnancy not specified
CPT/HCPCS: 80053; 81003; 82570; 84156; 84315; 84550; 85025; 99211

== ENCOUNTER 2022-12-26 05:03 | Inpatient (IN) | payer OTHER, SELFPAY ==
[2022-12-26] VITALS (103 sets, daily range): BP systolic 91–117; BP diastolic 41–80; PULSE 58–100; RESP 16–18; TEMP 34.3–36.4; O2SAT 86–99; BMI 33.8
[2022-12-26 05:34] LABS: Basophils % 0.2 %; Eosinophils # 0.1 10^3/uL (0.0-0.8); Eosinophils % 0.4 %; Hematocrit 34.9 % (37.0-47.0); Hemoglobin 11.6 g/dL (11.5-15.3); Lymphocytes % 32.9 %; Mean Corpuscular HGB Conc 33.2 g/dL (30.0-36.0); Mean Corpuscular Hemoglobin 29.5 pg (28.0-34.0); Mean Corpuscular Volume 88.8 fl (81-99); Mean Platelet Volume 11.1 fL (7.4-10.4); Monocytes # 0.7 10^3/uL (0.2-0.9); Neutrophils # 7.33 10^3/uL (1.8-7.7); Neutrophils % 59.8 %; Nucleated Red Blood Cells % 0 %; Platelet Count 246 10^3/cmm (130-400); Red Blood Count 3.93 10^6/uL (4.1-5.3); Red Cell Distribution Width 14.6 % (12.1-15.1); White Blood Count 12.3 10^3/uL (4.0-10.0)
[2022-12-26] MEDS: lactated ringers 1,000 ML 999 ML IV ×3 (05:40→22:51)
--- NOTE | 2022-12-26 06:52 | ANES.PREANE2 ---
Pre-Anesthetic Assessment Height/Weight: Height 1.7 m Weight 97.976 kg Pulse BP Pulse Ox O2 Del Method 80 111/76 98 Room Air 12/26/22 06:42 12/26/22 06:42 12/26/22 06:03 12/26/22 05:09 Preop Diagnosis: IUP Breech presentation Operation Date: 12/26/22 07:20 Proposed Procedures p Primary section 60265 ,O32.1XX0(Not Applicable) - Lisa Hoyos MD Familial anesthetic complications: none Last intake: meal- 199912/26/22 drink- 209912/26/22 Social No alcohol and No tobacco Exam alert, oriented x 3, clear to auscultation bilaterally and regular rate & rhythm Airway Submandibular: within normal limits Cervical ROM: within normal limits Mallampati: Class II Dentition: full Pulmonary None reported CV/HEM None reported None reported uterine mass noted Hepatic None reported GI Gastroesophageal Reflux Disease Metabolic None reported Musc/skel None reported Neuropsych None reported Anesthetic Plan ASA status: 2 Anesthesia: Regional (specify below) (SAB) Medications/Allergies Home Medications Medication Instructions Recorded Confirmed Last Taken Type cholecalciferol (vitamin D3) 1 tab PO DAILY 10/05/21 12/26/22 12/25/22 History prenat.vits,yan,[id number]-[id number] 1 tab PO DAILY 05/12/22 12/26/22 12/25/22 History loratadine 10 mg tablet (Claritin) 10 mg PO DAILY 06/23/22 12/26/22 12/25/22 History Allergies Allergy/AdvReac Type Severity Reaction Status Date / Time No Known Allergies Allergy Verified 12/26/22 06:02 [facility] Anesthesia Medical History Acute anxiety resolved Depression resolved No pertinent past medical history neghx, htn, dm, thyroid, dvt/pe PCP: Dr. Avelar Uterine fibroid Surgical History S/P LASIK surgery of both eyes Family History Sister Thyroid disease hypothyroidsm Mother CAD (coronary artery disease) Hypertension CHF (congestive heart failure) Mitral valve disorder Cardiomyopathy Hyperlipidemia Heart disease Grandmother Diabetes maternal Hyperlipidemia maternal Colon cancer paternal Grandfather Hyperlipidemia maternal Denies family history of Cervical cancer Ovarian cancer Prostate cancer Breast cancer Bleeding disorder Uterine cancer Stroke Social History Substance/Drug Use: never Female Reproductive History : 1 Data Anesthesia 12/26/22 05:25 Short CBC 12/26/22 Range/Units 05:25 WBC 12.3 H (4.0-10.0) 10^3/uL Hgb 11.6 (11.5-15.3) g/dL Hct 34.9 L (37.0-47.0) % MCV 88.8 (81-99) fl Plt Count 246 (130-400) 10^3/cmm Neut % (Auto) 59.8 % Neut # (Auto) 7.33 (1.8-7.7) 10^3/uL Cardiac Studies: No Data to Display
[2022-12-26] MEDS: citric acid-sodium citrate 30 mL UDC PO (07:00)
[2022-12-26] MEDS: metoclopramide 5 mg/mL SDV 2 mL 10 MG IVP (07:00)
[2022-12-26] MEDS: famotidine 20 mg/2 mL INJ IVP (07:00)
--- NOTE | 2022-12-26 07:46 | W.PM.OPSUD ---
Surgery/Procedure H&P Update DATE OF PROCEDURE: December 26, 2022 DATE H&P PERFORMED: 12/19/22 H&P UPDATE INFORMATION: I have reviewed H&P completed within last 30 days, I have examined patient prior to procedure and No changes to prior documentation PREOP DIAGNOSIS: IUP Breech presentation PLANNED PROCEDURE: Operation Date: 12/26/22 07:20 Proposed Procedures p Primary section [id number] ,O32.1XX0(Not Applicable) - Lisa Hoyos MD
--- NOTE | 2022-12-26 08:48 | P.OP_ITS ---
Operative Report Date of procedure: December 26, 2022 Pre-op diagnosis: Preop Diagnosis IUP Breech presentation Post-op diagnosis: same Post-op findings: footling breech presentation with multiple external and intramural fibroids. Procedure done: primary Specimens removed/disposition: placenta-discarded Pathology: none Surgeon: Lisa Hoyos Anesthesia: Other (spinal) Estimated blood loss (mL): 1,000 IV fluids (mL): 1,500 Urine output (mL): 50 Complications: none Findings: term male in the footling breech presentation. Multiple fibroids including a large fibroid in the left, lower uterine segment Condition: stable Disposition: PACU Procedure: The patient was taken to the operating room where spinal anesthesia was administered and found to be adequate. She was prepped and draped in the normal sterile fashion in the dorsal supine position with a leftward tilt. A Pfannenstiel skin incision was made and carried down to the underlying layer of fascia. The fascia was nicked in the midline and extended laterally with the St scissors. The fascia was then tented up and the rectus muscles dissected off sharply. The rectus muscles were and the peritoneum entered bluntly with the digit. The peritoneal incision was extended superiorly and inferiorly with good visualization of the bladder. The Maxime O retractor was placed. It was clear of any bowel or omentum. The bladder flap was created sharply with the Metzenbaum scissors. A low transverse uterine incision was made and carried down to the bag of water. The bag of water was ruptured and the uterine incision extended cephalocaudad. The bilateral feet were grasped and brought through the incision. The body and arms followed and then the head delivered spontaneously. The nose and mouth were bulb suctioned. The baby was allowed to rest, while being dried, for 1 minute and then the cord was clamped and cut. The baby was handed to the waiting vac press operator. The placenta was delivered by expression. The uterus was cleared of all clots and debris. The uterine incision was closed with 0 Vicryl in a running fashion. A second imbricating layer of 3-0 Monocryl was used to close the uterus. The bladder flap was closed with 3-0 Monocryl. There was excellent hemostasis. The Maxime O retractor was removed. The peritoneum was closed with 3-0 Monocryl, incorporating the rectus muscle. The fascia was closed with 0 Vicryl in 2 separate sutures overlapping in the midline. The skin was closed with absorbable rebekah. Apgars on baby 8 at 1 minute and 8 at 5 minutes. weight 8 pounds 8 ounces. Mother and baby were stable post delivery.
--- NOTE | 2022-12-26 09:30 | ANE.PACU2 ---
Inpatient post-anesthesia follow up: Airway intact: Yes Vital signs: Temperature 98.1 F Pulse Rate 89 Respiratory Rate 16 Blood Pressure 118/78 Pulse Oximetry 98 Oxygen Delivery Me thod Room Air Oxygen Flow Rate Fraction of Inspir ed Oxygen Hydration adequate: Yes Nausea and vomiting: Yes Pain level: 1 Mental status: Baseline
[2022-12-26] MEDS: dextrose 5%-lactated ringers 1,000 ML 125 ML IV ×2 (12:21→17:57)
[2022-12-26] MEDS: acetaminophen 325 mg Tablet 650 MG PO (12:56)
[2022-12-26] MEDS: ketorolac 30 mg/mL INJ IVP ×2 (15:25→21:30)
[2022-12-26] MEDS: sodium chloride 0.9% 500 ML 999 ML IV (16:50)
[2022-12-26] MEDS: docusate sodium 100 mg Capsule PO (17:56)
[2022-12-26 20:38] LABS: Hematocrit 28.2 % (37.0-47.0); Hemoglobin 9.2 g/dL (11.5-15.3); Mean Corpuscular HGB Conc 32.6 g/dL (30.0-36.0); Mean Corpuscular Hemoglobin 29.6 pg (28.0-34.0); Mean Corpuscular Volume 90.7 fl (81-99); Mean Platelet Volume 11.7 fL (7.4-10.4); Platelet Count 213 10^3/cmm (130-400); Red Blood Count 3.11 10^6/uL (4.1-5.3); Red Cell Distribution Width 14.8 % (12.1-15.1); White Blood Count 12.3 10^3/uL (4.0-10.0)
[2022-12-26] MEDS: FUROsemide 10 mg/mL SDV 2mL IVP (22:55)
[2022-12-27] VITALS (12 sets, daily range): BP systolic 92–121; BP diastolic 56–66; PULSE 63–86; RESP 16; TEMP 35.9–36.4
[2022-12-27] MEDS: ibuprofen 800 mg tablet PO ×3 (07:52→20:52)
[2022-12-27] MEDS: prenatal vitamin Capsule 1 CAP PO (07:52)
[2022-12-27] MEDS: ferrous sulfate EC 325 mg Tablet PO ×2 (07:52→20:51)
[2022-12-27] MEDS: docusate sodium 100 mg Capsule PO ×2 (07:52→20:52)
--- NOTE | 2022-12-27 09:11 | P.PN_ITS ---
Subjective Subjective: The patient is doing well today. No concerns Vitals/I&O/Wt Last Vital Signs Temp 97.2 F L 12/28/22 04:21 Pulse 79 12/28/22 04:21 Resp 16 12/27/22 22:00 BP 109/67 12/28/22 04:21 Pulse Ox 92 12/26/22 13:48 O2 Del Method Room Air 12/26/22 10:51 Physical Exam Narrative: The patient has been up and ambulating. She is tolerating a regular diet. Pain is controlled. Const: COMMON NORMALS: no acute distress, patient oriented x3, no limitations, healthy appearing, alert and well nourished GENERAL APPEARANCE: cooperative, comfortable, well kempt and well developed ORIENTATION/CONSCIOUSNESS: Yes awake, Yes oriented to person, Yes oriented to place and Yes oriented to time Resp: COMMON NORMALS: normal respiratory effort EFFORT & INSPECTION: Yes able to speak in complete sentences GI: COMMON NORMALS: Soft to palpation and non-tender PALPATION: Yes Soft to palpation Extremity: COMMON NORMALS: normal to inspection Neuro: COMMON NORMALS: patient oriented x3 SENSORIUM/ORIENTATION: Yes talha rt, Yes oriented to person, Yes oriented to place and Yes oriented to time Psych: COMMON NORMALS: mental status grossly normal, Normal thought process present and cooperative APPEARANCE: Yes well kempt THOUGHT PROCESS: Normal thought process present Urinary Catheter Management: Leary: Cath Placed During This Visit: yes, but has since been removed by the nurse Reason for Continuing Indwelling Catheter: Decision to DC Catheter Urinary Catheter Date of Insertion: 12/26/22 Urinary Catheter Time of Insertion: 07:50 Date Urinary Catheter Removed: 12/27/22 Time Urinary Catheter Discontinued: 05:52 Data 12/27/22 12:07 Attestations Medical Necessity Statement*: The patient had a . She will be here for two midnights. Coding Level of Care Code Acute Code for Chg Fwd Diagnoses
[2022-12-27 12:31] LABS: Hemoglobin 10.4 g/dL (11.5-15.3); Mean Corpuscular HGB Conc 31.5 g/dL (30.0-36.0); Mean Corpuscular Hemoglobin 29.2 pg (28.0-34.0); Mean Corpuscular Volume 92.7 fl (81-99); Mean Platelet Volume 11.4 fL (7.4-10.4); Platelet Count 230 10^3/cmm (130-400); Red Blood Count 3.56 10^6/uL (4.1-5.3); Red Cell Distribution Width 14.9 % (12.1-15.1); White Blood Count 11.7 10^3/uL (4.0-10.0)
[2022-12-28 04:21] VITALS: BP 109/67; PULSE 79; TEMP 36.2
[2022-12-28] MEDS: acetaminophen 325 mg Tablet 650 MG PO (04:23)
--- NOTE | 2022-12-28 09:22 | P.DS_ITS ---
Discharge Providers Date of Admission: 12/26/22 05:03 Date of Discharge: December 28, 2022 Attending Provider at Admission: Lisa Hoyos MD Attending Provider at Discharge: Lisa Hoyos MD Primary Care Provider: Lisa Hoyos MD Reason for Visit Reason for Visit: epi consult Hospital Course Hospital Course The patient was admitted for a primary for breech. She did well and was ready for discharge on day #2. Physical Exam Narrative: The patient has no concerns today Const: COMMON NORMALS: no acute distress, patient oriented x3, no limitations, healthy appearing, alert and well nourished GENERAL APPEARANCE: cooperative, comfortable, well kempt and well developed ORIENTATION/CONSCIOUSNESS: Yes aw lavinia, Yes oriented to person, Yes oriented to place and Yes oriented to time Resp: COMMON NORMALS: normal respiratory effort EFFORT & INSPECTION: Yes able to speak in complete sentences GI: COMMON NORMALS: Soft to palpation and non-tender PALPATION: Yes Soft to palpation Extremity: COMMON NORMALS: normal to inspection and no calf tenderness Neuro: COMMON NORMALS: patient oriented x3 SENSORIUM/ORIENTATION: Yes alert, Yes oriented to person, Yes oriented to place and Yes oriented to time Psych: COMMON NORMALS: mental status grossly normal, Normal thought process present, cooperative, normal affect and speech normal APPEARANCE: Yes well kempt SPEECH: Yes normal speech THOUGHT PROCESS: Normal thought process present Urinary Catheter Management: Leary: Cath Placed During This Visit: yes, but has since been removed by the nurse Reason for Continuing Indwelling Catheter: Decision to DC Catheter Urinary Catheter Date of Insertion: 12/26/22 Urinary Catheter Time of Insertion: 07:50 Date Urinary Catheter Removed: 12/27/22 Time Urinary Catheter Discontinued: 05:52 Discharge Data Studies Completed and Pending Laboratory Results WBC 11.7 10^3/uL (4.0-10.0) H 12/27/22 12:07 RBC 3.56 10^6/uL (4.1-5.3) L 12/27/22 12:07 Hgb 10.4 g/dL (11.5-15.3) L 12/27/22 12:07 Hct 33.0 % (37.0-47.0) L 12/27/22 12:07 MCV 92.7 fl (81-99) 12/27/22 12:07 MCH 29.2 pg (28.0-34.0) 12/27/22 12:07 MCHC 31.5 g/dL (30.0-36.0) 12/27/22 12:07 RDW 14.9 % (12.1-15.1) 12/27/22 12:07 Plt Count 230 10^3/cmm (130-400) 12/27/22 12:07 MPV 11.4 fL (7.4-10.4) H 12/27/22 12:07 Neut % (Auto) 59.8 % 12/26/22 05:25 Lymph % (Auto) 32.9 % 12/26/22 05:25 [place] % (Auto) 6.0 % 12/26/22 05:25 Eos % (Auto) 0.4 % 12/26/22 05:25 Baso % (Auto) 0.2 % 12/26/22 05:25 Neut # (Auto) 7.33 10^3/uL (1.8-7.7) 12/26/22 05:25 Lymph # (Auto) 4.0 10^3/uL (0.8-4.8) 12/26/22 05:25 [place] # (Auto) 0.7 10^3/uL (0.2-0.9) 12/26/22 05:25 Eos # (Auto) 0.1 10^3/uL (0.0-0.8) 12/26/22 05:25 Baso # (Auto) 0.0 10^3/uL (0.0-0.1) 12/26/22 05:25 Nucleated RBC % (auto) 0 % 12/26/22 05:25 Nucleated RBCs # 0.0 /100WBC 12/26/22 05:25 Blood Type O Positive 12/26/22 05:25 Rho(D) Type Positive 12/26/22 05:25 Antibody Screen Negative 12/26/22 05:25 Vitals Last Vital Signs Temp 97.2 F L 12/28/22 04:21 Pulse 79 12/28/22 04:21 Resp 16 12/27/22 22:00 BP 109/67 12/28/22 04:21 Pulse Ox 92 12/26/22 13:48 O2 Del Method Room Air 12/26/22 10:51 Discharge Plan Discharge Patient Disposition: Home Condition: Stable Prescriptions: New docusate sodium 100 mg Capsule 100 mg PO BID Qty: 60 0RF ibuprofen 800 mg Tablet 800 mg PO TID Qty: 30 0RF hydrocodone-acetaminophen 5-325 mg Tablet 1 tab PO Q4H PRN (Reason: Moderate To Severe Pain) Qty: 30 0RF Continued cholecalciferol (vitamin D3) 1 tab PO DAILY prenat.vits,yan,tkl-[id number]-xkcir Tablet 1 tab PO DAILY loratadine [Claritin] 10 mg tablet 10 mg PO DAILY Discharge Orders: Discharge Order (Routine); Ordered 12/28/22 Ordered By: Lisa Hoyos Patient Instructions: Opioid Safety Discharge Attestations Time Spent in Discharge Care*: less than 30 min Quality Metrics Clinical Quality Measures [ No reported AMI, CVA or VTE this stay] Coding Level of Care Code Acute Code for Chg Fwd Diagnoses
[2022-12-28] MEDS: prenatal vitamin Capsule 1 CAP PO (10:04)
[2022-12-28] MEDS: ibuprofen 800 mg tablet PO (10:04)
[2022-12-28] MEDS: docusate sodium 100 mg Capsule PO (10:04)
[2022-12-28] MEDS: ferrous sulfate EC 325 mg Tablet PO (10:04)
[2022-12-28 10:07] VITALS: BP 118/78; PULSE 89; O2SAT 98
[2022-12-28 10:09] VITALS: TEMP 36.7
[2022-12-28 11:20] VITALS: BP 118/78; PULSE 89; RESP 17; TEMP 36.7; O2SAT 98
[2022-12-28] MEDS: simethicone 80 mg Chew PO (11:20)
== END 2022-12-28 11:20 | disposition home or self-care (01) | DRG 788 ==
PROVIDERS: Admitting Provider Obstetrics & Gynecology; PCP Obstetrics & Gynecology; Visit Provider Obstetrics & Gynecology
PROC: 10D00Z1 Extraction of Products of Conception, Low, Open Approach (ICD-10-PCS; CPT 59514; principal; 2022-12-26 07:00)
DX: O32.8XX0 Maternal care for other malpresentation of fetus, not applicable or unspecified (principal); Z3A.39 39 weeks gestation of pregnancy; Z37.0 Single live birth; Z87.891 Personal history of nicotine dependence; O34.13 Maternal care for benign tumor of corpus uteri, third trimester; D25.1 Intramural leiomyoma of uterus; O99.02 Anemia complicating childbirth; D64.9 Anemia, unspecified
CPT/HCPCS: 36415; 51702; 59025; 59409; 85025; 85027; 86850; 86900; 96374; 96375; 96376; 99211; J1885; J1940; J2274; J2371; J2405; J2590; J2765; J3010; J3490; J7040; J7120; J7121

== ENCOUNTER → 2023-06-15 15:36 | Outpatient (BNVA) | payer OTHER, SELFPAY | PROVIDERS: PCP Obstetrics & Gynecology; Visit Provider Family Medicine Adult Medicine | DX: D64.9 Anemia, unspecified (principal); R53.83 Other fatigue | CPT/HCPCS: 80053; 84443; 85025 ==

== ENCOUNTER → 2023-11-29 11:03 | Outpatient (BNVA) | payer OTHER, SELFPAY | PROVIDERS: PCP Obstetrics & Gynecology; Visit Provider Obstetrics & Gynecology | DX: D25.9 Leiomyoma of uterus, unspecified (principal) | CPT/HCPCS: 76830 ==

== ENCOUNTER 2023-12-12 07:30 | Outpatient (CLI) | payer OTHER, SELFPAY | END 2023-12-12 07:31 | disposition home or self-care (01) | PROVIDERS: Visit Provider Nurse Practitioner Women's Health | DX: N92.6 Irregular menstruation, unspecified (principal) | CPT/HCPCS: 84702 ==

== ENCOUNTER 2023-12-15 06:11 | Outpatient (CLI) | payer OTHER, SELFPAY | END 2023-12-15 06:12 | disposition home or self-care (01) | PROVIDERS: Visit Provider Nurse Practitioner Women's Health | DX: N92.6 Irregular menstruation, unspecified (principal) | CPT/HCPCS: 36415; 84702 ==

== ENCOUNTER → 2023-12-22 07:57 | Outpatient (BNVA) | payer OTHER, SELFPAY | PROVIDERS: Visit Provider Nurse Practitioner Women's Health | DX: N92.6 Irregular menstruation, unspecified (principal) | CPT/HCPCS: 81025 ==

== ENCOUNTER → 2023-12-26 14:23 | Outpatient (BNVA) | payer OTHER, SELFPAY | PROVIDERS: Visit Provider Nurse Practitioner Women's Health | DX: N92.6 Irregular menstruation, unspecified (principal) | CPT/HCPCS: 76801 ==

== ENCOUNTER → 2024-01-12 13:50 | Outpatient (BNVA) | payer OTHER, SELFPAY | PROVIDERS: Visit Provider Nurse Practitioner Women's Health | DX: Z34.90 Encounter for supervision of normal pregnancy, unspecified, unspecified trimester (principal) | CPT/HCPCS: 80307; 84315; 85025; 86592; 86762; 86803; 86850; 86900; 87086; 87340; 87806 ==

== ENCOUNTER → 2024-01-25 08:21 | Outpatient (BNVA) | payer OTHER, SELFPAY | PROVIDERS: Visit Provider Obstetrics & Gynecology | DX: O09.521 Supervision of elderly multigravida, first trimester (principal) | CPT/HCPCS: 84315; 87491; 87591 ==